=== PATIENT | female | born 1945 | race Caucasian/White ===

== ENCOUNTER 2017-03-27 21:42 | Inpatient (IN) | payer MEDICARE, OTHER ==
[~2017-03-27] VITALS: Ht 157.5 cm; Wt 67.6 kg
--- NOTE | 2017-03-27 21:45 | NUR ---
received via EMS for [facility] for Psych placement, awake, alert, (+) visual hallucinations, states " I have bed bugs all over me", cooperative, denies homicidal or suicidal ideation, pending MD ramos
--- NOTE | 2017-03-27 22:05 | NUR ---
exam by Dr Buenrostro
[2017-03-27 23:01] LABS: BASOPHILS # (AUTO) 0.2 K/uL (0.0-8.0); BASOPHILS % (AUTO) 1.7 % (0.0-2.0); EOSINOPHILS # (AUTO) 0.3 K/uL (0.0-0.7); EOSINOPHILS % (AUTO) 2.9 % (0.0-7.0); HEMATOCRIT 40.2 % (37-47); HEMOGLOBIN 13.6 G/DL (12.0-16.0); LYMPHOCYTES # (AUTO) 3.7 K/UL (0.8-4.8); MEAN CORPUSCULAR HEMOGLOBIN 29.4 UUG (27.0-31.0); MEAN CORPUSCULAR HGB CONC 34 g/dL (32.0-37.0); MEAN CORPUSCULAR VOLUME 87.1 FL (81.0-99.0); MONOCYTES # (AUTO) 0.8 K/UL (0.1-1.30); MONOCYTES % (AUTO) 7.3 % (0.0-11.0); NEUTROPHILS # (AUTO) 5.7 K/UL (1.8-8.9); NEUTROPHILS % (AUTO) 53.1 % (38.5-71.5); PLATELET COUNT (AUTO) 156 K/UL (150-450); RED BLOOD CELL COUNT(AUTO) 4.61 MIL/UL (4.2-5.4); WHITE BLOOD COUNT (AUTO) 10.7 K/UL (4.0-11.2)
[2017-03-27 23:13] LABS: ACETAMINOPHEN 2.2 ug/mL (10-30); ALANINE AMINOTRANSFERASE 39 U/L (14-59); ALKALINE PHOSPHATASE 100 U/L (50-136); ASPARTATE AMINOTRANSFERASE 23 U/L (15-37); BILIRUBIN,DIRECT 0.1 mg/dL (0.0-0.2); BILIRUBIN,TOTAL 0.5 mg/dL (0.2-1.0); CARBON DIOXIDE 25 mmol/L (21-32); CHLORIDE 107 mmol/L (98-107); CREATININE 1.1 mg/dL (0.6-1.3); GLUCOSE 107 mg/dL (74-106); POTASSIUM 3.2 mmol/L (3.5-5.1); TOTAL PROTEIN, SERUM 6.7 g/dL (6.4-8.2); UREA NITROGEN, BLOOD 22 mg/dL (7-18)
[2017-03-27 23:20] LABS: ETHANOL < 3 MG/DL (0-0)
[2017-03-27 23:42] LABS: *BILIRUBIN,URIN NEGATIVE (NEGATIVE); *BLOOD, URINE Trace-intact (NEGATIVE); *CLARITY,URINE CLEAR (CLEAR); *COLOR,URINE YELLOW (YELLOW); *KETONES,URINE NEGATIVE (NEGATIVE); *PROTEIN,URINE NEGATIVE (NEGATIVE); *UROBILINOGEN,URINE 0.2 E.U./dl (NORMAL); LEUKOCYTE ESTERASE ,URINE 1+ (NEGATIVE); NITRITE, URINE NEGATIVE (NEGATIVE); UGLUCOSE TRACE (NEGATIVE)
[2017-03-27 23:50] LABS: THYROID STIMULATING HORMONE 2.594 mIU/mL (0.358-3.740)
[2017-03-27 23:58] LABS: *AMPHETAMINE, URINE NEGATIVE (NEGATIVE); *BARBITURATE, URINE NEGATIVE (NEGATIVE); *CANNABINOID, URINE NEGATIVE (NEGATIVE); *COCCAINE, URINE NEGATIVE (NEGATIVE); *OPIATE, URINE POSITIVE (NEGATIVE); *PHENCYCLIDINE SCREEN,URINE NEGATIVE (NEGATIVE)
[2017-03-27 23:59] LABS: BACTERIA,URINE NONE SEEN /HPF (NONE SEEN); RBC,URINE 0-3 /HPF (0-3); SQUAMOUS EPITHELIAL CELL,UR FEW /HPF (NONE SEEN); YEAST,URINE FEW /HPF (NONE SEEN)
--- NOTE | 2017-03-28 00:30 | NUR ---
medically cleared for psych placement
--- NOTE | 2017-03-28 01:00 | NUR ---
report given to receiving RN MHU
[2017-03-28] MEDS ORDERED: HYDROCODONE/APAP 5-325MG TABLET PO STA (01:04)
[2017-03-28] MEDS ORDERED: HYDROCODONE/APAP 5-325MG TABLET ONE (01:27)
[2017-03-28] MEDS ORDERED: ADVIL (01:42)
[2017-03-28] MEDS ORDERED: HYDR-552 PO (01:42)
[2017-03-28] MEDS ORDERED: DEXL60CA3 PO (01:42)
[2017-03-28] MEDS ORDERED: PRAV40TA PO (01:42)
[2017-03-28] MEDS ORDERED: METF500T4 PO (01:42)
[2017-03-28 02:16] VITALS: BP 149/89
[2017-03-28] MEDS: CLONAZEPAM 0.5 MG TABLET PO PRN (02:50)
[2017-03-28] MEDS ORDERED: CLONAZEPAM 0.5 MG TABLET ONE (02:53)
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
[2017-03-28 07:30] VITALS: BP 142/86
[2017-03-28] MEDS: ESCITALOPRAM OXALATE 10 MG TABLET PO SCH (11:11)
[2017-03-28] MEDS: ARIPIPRAZOLE 5 MG TABLET PO SCH (11:11)
[2017-03-28] MEDS: ACETAMINOPHEN 325 MG TABLET PO PRN (12:00)
[2017-03-28 15:00] VITALS: BP 145/74
[2017-03-28 20:27] VITALS: BP 143/67
[2017-03-28] MEDS: TEMAZEPAM 7.5 MG CAPSULE PO PRN (22:20)
[2017-03-28] MEDS ORDERED: POTASSIUM CHLORIDE 20 MEQ TAB.PRT.SR PO ONE (22:30)
--- NOTE | 2017-03-29 03:22 | NUR ---
PATIENT REQUESTED PRN FOR SLEEP, ADMINISTERED ORDERED WITH EFFECTIVE OUTCOME, CONTINUE TO MONITOR TO ENSURE A SAFE ENVIRONMENT.
[2017-03-29 07:24] LABS: CARBON DIOXIDE 25 mmol/L (21-32); CHLORIDE 105 mmol/L (98-107); CREATININE 0.9 mg/dL (0.6-1.3); GLUCOSE 176 mg/dL (74-106); PHOSPHOROUS 3.7 mg/dL (2.5-4.9); POTASSIUM 3.6 mmol/L (3.5-5.1); UREA NITROGEN, BLOOD 14 mg/dL (7-18)
[2017-03-29 07:30] VITALS: BP 137/58
[2017-03-29 07:30] LABS: BASOPHILS % (AUTO) 0.2 % (0.0-2.0); EOSINOPHILS # (AUTO) 0.1 K/uL (0.0-0.7); HEMATOCRIT 42.1 % (37-47); HEMOGLOBIN 14.5 G/DL (12.0-16.0); LYMPHOCYTES # (AUTO) 1.7 K/UL (0.8-4.8); LYMPHOCYTES % (AUTO) 15.4 % (20.5-51.5); MEAN CORPUSCULAR HEMOGLOBIN 30.1 UUG (27.0-31.0); MEAN CORPUSCULAR HGB CONC 35 g/dL (32.0-37.0); MEAN CORPUSCULAR VOLUME 87.2 FL (81.0-99.0); MONOCYTES # (AUTO) 0.6 K/UL (0.1-1.30); MONOCYTES % (AUTO) 5.7 % (0.0-11.0); NEUTROPHILS # (AUTO) 8.8 K/UL (1.8-8.9); NEUTROPHILS % (AUTO) 77.7 % (38.5-71.5); RED BLOOD CELL COUNT(AUTO) 4.83 MIL/UL (4.2-5.4); WHITE BLOOD COUNT (AUTO) 11.2 K/UL (4.0-11.2)
[2017-03-29 07:31] LABS: PLATELET COUNT (AUTO) 212 K/UL (150-450)
[2017-03-29] MEDS: ARIPIPRAZOLE 5 MG TABLET PO SCH (09:09)
[2017-03-29] MEDS: ESCITALOPRAM OXALATE 10 MG TABLET PO SCH (09:09)
[2017-03-29] MEDS: CLONAZEPAM 0.5 MG TABLET PO PRN (11:25)
[2017-03-29] MEDS: ACETAMINOPHEN 325 MG TABLET PO PRN (11:25)
[2017-03-29 16:46] VITALS: BP 100/56
[2017-03-29] MEDS: MUPIROCIN 2% OINT 22 GM TUBE NS SCH (20:32)
[2017-03-29 20:45] VITALS: BP 152/78
[2017-03-30] MEDS: ACETAMINOPHEN 325 MG TABLET PO PRN ×2 (05:37→15:42)
--- NOTE | 2017-03-30 06:15 | NUR ---
PATIENT SLEPT FOR APPROX 7 HRS THROUGH THE NIGHT. TYLENOL 7650MG PO PRN WAS GIVEN FOR LOWER BACK PAIN 5/10 IN THE PAIN INTENSITY SCALE AT 0537. WAS EFFECTIVE.
[2017-03-30 07:30] VITALS: BP 130/65
[2017-03-30] MEDS: ARIPIPRAZOLE 5 MG TABLET PO SCH (08:21)
[2017-03-30] MEDS: ESCITALOPRAM OXALATE 10 MG TABLET PO SCH (08:21)
[2017-03-30] MEDS: MUPIROCIN 2% OINT 22 GM TUBE NS SCH ×2 (08:21→21:09)
[2017-03-30] MEDS: MAG HYDROX/AL HYDROX/SIMETH 30 ML LIQUID UDC PO PRN (11:47)
[2017-03-30] MEDS: CLONAZEPAM 0.5 MG TABLET PO PRN (15:42)
[2017-03-30 16:35] VITALS: BP 145/60
[2017-03-30 20:51] VITALS: BP 158/79
[2017-03-30] MEDS: TEMAZEPAM 7.5 MG CAPSULE PO PRN (21:09)
--- NOTE | 2017-03-30 22:00 | NUR ---
received to care, lying in bed, pleasant, and cheerful, upon approach. watched tv for a short time, then went back to bed. 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 pt is compliant with isolation procedures, and treatment. denies SI, or desire to harm self. compliant with medications and staff direction. PRN restoril was given at 2108, for insomnia. as of 2199, she appears to be asleep. no distress noted. will continue to monitor closely.
--- NOTE | 2017-03-31 06:00 | NUR ---
slept 8.5 hours, total. continues to sleep. no distress noted.
[2017-03-31] MEDS: MAGNESIUM HYDROXIDE 30 ML LIQUID UDC PO PRN (07:16)
[2017-03-31 07:30] VITALS: BP 140/86
[2017-03-31] MEDS: MUPIROCIN 2% OINT 22 GM TUBE NS SCH ×2 (08:20→20:36)
[2017-03-31] MEDS: ARIPIPRAZOLE 5 MG TABLET PO SCH (08:20)
[2017-03-31] MEDS: ESCITALOPRAM OXALATE 10 MG TABLET PO SCH (08:20)
[2017-03-31] MEDS ORDERED: DEXTROSE 50% 50 ML DISP.SYRIN IV PRN (10:45)
[2017-03-31] MEDS: PANTOPRAZOLE SODIUM 40 MG TABLET.DR PO SCH (11:07)
[2017-03-31] MEDS: BLOOD SUGAR DIAGNOSTIC 1 EACH STRIP VI SCH ×3 (11:15→20:05)
--- NOTE | 2017-03-31 12:14 | NUR ---
Initial Discharge Instructions: Pt is currently homeless. Per pt, she has an apartment in [place], [place] that she would like to return to. Pt is open to SNF placement if needed. Attempted to call pt's niece, Lyn Lin , left VM and awaiting return call. Attempted to contact pt's APS worker, Starr Witt , awaiting return call. SW will speak with pt, family, and MD regarding appropriate discharge plans. SW will form a safe and appropriate discharge.
[2017-03-31] MEDS: MAG HYDROX/AL HYDROX/SIMETH 30 ML LIQUID UDC PO PRN (13:43)
[2017-03-31 17:02] VITALS: BP 160/71
[2017-03-31 20:08] VITALS: BP 137/73
[2017-03-31] MEDS: ATORVASTATIN 10 MG TABLET PO SCH (20:35)
[2017-03-31] MEDS: METFORMIN HCL 500 MG TABLET PO SCH (20:35)
[2017-03-31] MEDS: LATANOPROST OPHT DROP 2.5 ML BOTTLE EACHEYE SCH (20:36)
[2017-03-31] MEDS ORDERED: TRAVOPROST 0.004% OPHT DROP 2.5 ML BOTTLE EACHEYE SCH (21:00)
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
[2017-03-31] MEDS: HYDROCODONE/APAP 5-325MG TABLET PO PRN (22:20)
--- NOTE | 2017-03-31 22:39 | NUR ---
PATIENT REQUESTED PAIN MEDICATION FOR LOWER BACK PAIN 7/10 IN THE PAIN INTENSITY SCALE. NORCO 5/325MG PO PRN FOR MODERATE PAIN WAS GIVEN AT 2220 PER NURSE ASSESSMENT. WILL CONTINUE TO MONITOR
[2017-04-01] MEDS: PANTOPRAZOLE SODIUM 40 MG TABLET.DR PO SCH (06:17)
[2017-04-01] MEDS: BLOOD SUGAR DIAGNOSTIC 1 EACH STRIP VI SCH ×4 (06:43→20:15)
[2017-04-01 07:30] VITALS: BP 115/58
[2017-04-01 07:32] LABS: BASOPHILS # (AUTO) 0.1 K/uL (0.0-8.0); BASOPHILS % (AUTO) 0.7 % (0.0-2.0); EOSINOPHILS # (AUTO) 0.2 K/uL (0.0-0.7); EOSINOPHILS % (AUTO) 2.6 % (0.0-7.0); HEMATOCRIT 42.2 % (37-47); HEMOGLOBIN 14.5 G/DL (12.0-16.0); LYMPHOCYTES # (AUTO) 3.2 K/UL (0.8-4.8); LYMPHOCYTES % (AUTO) 38.9 % (20.5-51.5); MEAN CORPUSCULAR HEMOGLOBIN 30.2 UUG (27.0-31.0); MEAN CORPUSCULAR HGB CONC 34 g/dL (32.0-37.0); MEAN CORPUSCULAR VOLUME 88.1 FL (81.0-99.0); MONOCYTES # (AUTO) 0.8 K/UL (0.1-1.30); MONOCYTES % (AUTO) 10.1 % (0.0-11.0); NEUTROPHILS % (AUTO) 47.7 % (38.5-71.5); PLATELET COUNT (AUTO) 247 K/UL (150-450); RED BLOOD CELL COUNT(AUTO) 4.79 MIL/UL (4.2-5.4); WHITE BLOOD COUNT (AUTO) 8.3 K/UL (4.0-11.2)
[2017-04-01 07:39] LABS: ALANINE AMINOTRANSFERASE 35 U/L (14-59); ALKALINE PHOSPHATASE 94 U/L (50-136); ASPARTATE AMINOTRANSFERASE 23 U/L (15-37); BILIRUBIN,TOTAL 0.6 mg/dL (0.2-1.0); CARBON DIOXIDE 28 mmol/L (21-32); CHLORIDE 105 mmol/L (98-107); CREATININE 1.1 mg/dL (0.6-1.3); GLUCOSE 141 mg/dL (74-106); MAGNESIUM 2.6 mg/dL (1.8-2.4); PHOSPHOROUS 3.4 mg/dL (2.5-4.9); POTASSIUM 4.3 mmol/L (3.5-5.1); UREA NITROGEN, BLOOD 19 mg/dL (7-18)
[2017-04-01] MEDS: ESCITALOPRAM OXALATE 10 MG TABLET PO SCH (08:57)
[2017-04-01] MEDS: ARIPIPRAZOLE 5 MG TABLET PO SCH (08:57)
[2017-04-01] MEDS: MUPIROCIN 2% OINT 22 GM TUBE NS SCH ×2 (08:57→20:14)
[2017-04-01] MEDS: HYDROCODONE/APAP 5-325MG TABLET PO PRN ×2 (09:05→17:09)
[2017-04-01 15:09] VITALS: BP 122/63
[2017-04-01] MEDS: METFORMIN HCL 500 MG TABLET PO SCH (20:13)
[2017-04-01] MEDS: ATORVASTATIN 10 MG TABLET PO SCH (20:13)
[2017-04-01] MEDS: LATANOPROST OPHT DROP 2.5 ML BOTTLE EACHEYE SCH (20:14)
[2017-04-01] MEDS: INSULIN REGULAR, HUMAN 300 UNIT/3 ML VIAL SQ PRN (20:18)
[2017-04-01 20:38] VITALS: BP 111/57
[2017-04-01] MEDS: MAG HYDROX/AL HYDROX/SIMETH 30 ML LIQUID UDC PO PRN (21:38)
[2017-04-02] MEDS: PANTOPRAZOLE SODIUM 40 MG TABLET.DR PO SCH (06:22)
[2017-04-02] MEDS: BLOOD SUGAR DIAGNOSTIC 1 EACH STRIP VI SCH ×4 (06:43→21:04)
[2017-04-02 08:02] VITALS: BP 133/52
[2017-04-02] MEDS: HYDROCODONE/APAP 5-325MG TABLET PO PRN ×2 (08:37→16:19)
[2017-04-02] MEDS: MUPIROCIN 2% OINT 22 GM TUBE NS SCH ×2 (08:39→21:09)
[2017-04-02] MEDS: ARIPIPRAZOLE 5 MG TABLET PO SCH (08:39)
[2017-04-02] MEDS: ESCITALOPRAM OXALATE 10 MG TABLET PO SCH (08:39)
[2017-04-02 16:09] VITALS: BP 142/59
[2017-04-02 20:36] VITALS: BP 134/61
[2017-04-02] MEDS: ATORVASTATIN 10 MG TABLET PO SCH (21:07)
[2017-04-02] MEDS: METFORMIN HCL 500 MG TABLET PO SCH (21:07)
[2017-04-02] MEDS: LATANOPROST OPHT DROP 2.5 ML BOTTLE EACHEYE SCH (21:08)
[2017-04-02] MEDS: TEMAZEPAM 7.5 MG CAPSULE PO PRN (22:36)
[2017-04-03] MEDS: PANTOPRAZOLE SODIUM 40 MG TABLET.DR PO SCH (06:50)
[2017-04-03] MEDS: HYDROCODONE/APAP 5-325MG TABLET PO PRN ×3 (07:02→21:58)
[2017-04-03 07:30] VITALS: BP 135/83
[2017-04-03] MEDS: BLOOD SUGAR DIAGNOSTIC 1 EACH STRIP VI SCH ×4 (07:30→20:23)
[2017-04-03] MEDS: ARIPIPRAZOLE 5 MG TABLET PO SCH (08:37)
[2017-04-03] MEDS: ESCITALOPRAM OXALATE 10 MG TABLET PO SCH (08:38)
--- NOTE | 2017-04-03 09:20 | NUR ---
PT IS PLEASANT ON APPROACH, NO AGITATION, COMPLIANT WITH MEDICATIONS. NO BEHAVIORAL ISSUES. PT TAKES HER MEDICATIONS, COMPLIANT WITH MRSA ISOLATION
[2017-04-03] MEDS: MUPIROCIN 2% OINT 22 GM TUBE NS SCH ×2 (10:19→20:10)
[2017-04-03 15:00] VITALS: BP 133/54
[2017-04-03] MEDS: ACETAMINOPHEN 325 MG TABLET PO PRN (20:10)
[2017-04-03] MEDS: CLONAZEPAM 0.5 MG TABLET PO PRN (20:11)
[2017-04-03] MEDS: ATORVASTATIN 10 MG TABLET PO SCH (20:11)
[2017-04-03] MEDS: LATANOPROST OPHT DROP 2.5 ML BOTTLE EACHEYE SCH (20:11)
[2017-04-03] MEDS: METFORMIN HCL 500 MG TABLET PO SCH (20:11)
[2017-04-03 20:22] VITALS: BP 144/67
[2017-04-03] MEDS: INSULIN REGULAR, HUMAN 300 UNIT/3 ML VIAL SQ PRN (20:25)
--- NOTE | 2017-04-03 23:00 | NUR ---
Pt REPORTED 6/10 GENERALIZED ANXIETY, KLONOPIN 0.25mg ADMINISTERED WITH GOOD EFFECT. Pt C/O 8/10 LOWER BACK PAIN, TYLENOL 650mg ADMINISTERED WITH MINIMAL EFFECT. APPROXIMATELY 90 MINUTES LATER Pt STATED HER PAIN WAS STILL PRESENT, 7/10. NORCO 5/325 ADMINISTERED WITH GOOD EFFECT.
[2017-04-04] MEDS: BLOOD SUGAR DIAGNOSTIC 1 EACH STRIP VI SCH ×4 (06:40→21:20)
[2017-04-04] MEDS: PANTOPRAZOLE SODIUM 40 MG TABLET.DR PO SCH (06:42)
[2017-04-04 07:30] VITALS: BP 132/54
[2017-04-04 07:43] LABS: BASOPHILS # (AUTO) 0.1 K/uL (0.0-8.0); EOSINOPHILS # (AUTO) 0.2 K/uL (0.0-0.7); EOSINOPHILS % (AUTO) 3.1 % (0.0-7.0); HEMATOCRIT 38.9 % (31.2-41.9); HEMOGLOBIN 13.9 g/dL (10.9-14.3); LYMPHOCYTES # (AUTO) 2.4 K/uL (20.0-40.0); LYMPHOCYTES % (AUTO) 36.6 % (20.5-51.5); MEAN CORPUSCULAR HEMOGLOBIN 31.4 uug (24.7-32.8); MEAN CORPUSCULAR HGB CONC 36 g/dL (32.3-35.6); MEAN CORPUSCULAR VOLUME 87.9 fL (75.5-95.3); MONOCYTES # (AUTO) 0.6 K/uL (2.0-10.0); MONOCYTES % (AUTO) 9.8 % (0.0-11.0); NEUTROPHILS # (AUTO) 3.3 K/uL (1.8-8.9); NEUTROPHILS % (AUTO) 49.5 % (38.5-71.5); PLATELET COUNT (AUTO) 207 K/uL (179-408); RED BLOOD CELL COUNT(AUTO) 4.42 MIL/uL (3.63-4.92); WHITE BLOOD COUNT (AUTO) 6.6 K/uL (3.8-11.8)
[2017-04-04 07:56] LABS: ALANINE AMINOTRANSFERASE 31 U/L (14-59); ALKALINE PHOSPHATASE 96 U/L (50-136); ASPARTATE AMINOTRANSFERASE 20 U/L (15-37); BILIRUBIN,TOTAL 0.5 mg/dL (0.2-1.0); CARBON DIOXIDE 28 mmol/L (21-32); CHLORIDE 106 mmol/L (98-107); CREATININE 1.2 mg/dL (0.6-1.3); GLUCOSE 123 mg/dL (74-106); MAGNESIUM 2.3 mg/dL (1.8-2.4); PHOSPHOROUS 4.3 mg/dL (2.5-4.9); UREA NITROGEN, BLOOD 21 mg/dL (7-18)
[2017-04-04] MEDS: ESCITALOPRAM OXALATE 10 MG TABLET PO SCH (09:42)
[2017-04-04] MEDS: HYDROCODONE/APAP 5-325MG TABLET PO PRN ×2 (09:42→21:26)
[2017-04-04] MEDS: ARIPIPRAZOLE 5 MG TABLET PO SCH (09:45)
[2017-04-04] MEDS: MUPIROCIN 2% OINT 22 GM TUBE NS SCH ×2 (09:50→21:18)
--- NOTE | 2017-04-04 11:21 | NUR ---
PT FOUND ON FLOOR IN OUTSIDE PATIO NEXT TO BENCH SEAT . PT APPARENTLY "MISSED MY SEAT" AND SAT ON THE FLOOR ACCIDENTALLY. WITNESSED BY RECREATIONAL THERAPIST WILL WHO WAS SUPERVISING PATIO TIME DURING INCIDENT. PT DENIES PAIN OR DISCOMFORT. STATES "I'M COMPLETELY FINE, I JUST NEED STRONG MEN TO HELP ME GET UP." SECURITY CALLED AND WILL ASSIST PT UP. FULL ROM ON ALL EXTREMITIES. V/S STABLE. Addendum: 04/04/17 at 1143 by ITALO MAYEN RN PLEASE DISREGARD THIS ENTRY. NOTE WAS FOR A DIFFERENT PATIENT.
--- NOTE | 2017-04-04 11:41 | NUR ---
PLEASE DISREGARD PREVIOUS ENTRY. WRONG PATIENT ENTRY.
[2017-04-04] MEDS: HYDROCODONE/APAP 10-325 MG TABLET PO PRN (14:26)
[2017-04-04 15:00] VITALS: BP 121/56
[2017-04-04] MEDS: INSULIN REGULAR, HUMAN 300 UNIT/3 ML VIAL SQ PRN (18:33)
[2017-04-04 21:08] VITALS: BP 123/53
[2017-04-04] MEDS: LATANOPROST OPHT DROP 2.5 ML BOTTLE EACHEYE SCH (21:18)
[2017-04-04] MEDS: METFORMIN HCL 500 MG TABLET PO SCH (21:18)
[2017-04-04] MEDS: ATORVASTATIN 10 MG TABLET PO SCH (21:19)
[2017-04-05] MEDS: BLOOD SUGAR DIAGNOSTIC 1 EACH STRIP VI SCH ×3 (06:21→16:07)
[2017-04-05] MEDS: HYDROCODONE/APAP 10-325 MG TABLET PO PRN ×2 (06:30→16:26)
[2017-04-05 07:30] VITALS: BP 146/57
[2017-04-05] MEDS: PANTOPRAZOLE SODIUM 40 MG TABLET.DR PO SCH (07:33)
[2017-04-05] MEDS: ESCITALOPRAM OXALATE 10 MG TABLET PO SCH (08:14)
[2017-04-05] MEDS: MUPIROCIN 2% OINT 22 GM TUBE NS SCH (08:14)
[2017-04-05] MEDS: ARIPIPRAZOLE 5 MG TABLET PO SCH (08:14)
[2017-04-05 15:29] VITALS: BP 129/52
--- NOTE | 2017-04-05 16:28 | NUR ---
GPS: Nursing Notes: Right Wrist: Patient is awake and responding to her name, c/o fo right wrist pain, applied ice bag, slightly swollen, Dr. Jasmine informed, ordered X-ray of right wrist, PRN [place] given for pain at this time, continue to monitor for safety, continue with treatment plan.
[2017-04-05 20:09] VITALS: BP 124/60
[2017-04-05] MEDS: ATORVASTATIN 10 MG TABLET PO SCH (20:09)
[2017-04-05] MEDS: LATANOPROST OPHT DROP 2.5 ML BOTTLE EACHEYE SCH (20:09)
[2017-04-05] MEDS: METFORMIN HCL 500 MG TABLET PO SCH (20:09)
[2017-04-05] MEDS: HYDROCODONE/APAP 5-325MG TABLET PO PRN (21:52)
[2017-04-05] MEDS: TEMAZEPAM 7.5 MG CAPSULE PO PRN (23:25)
[2017-04-06] MEDS: PANTOPRAZOLE SODIUM 40 MG TABLET.DR PO SCH (06:11)
--- NOTE | 2017-04-06 06:45 | NUR ---
GPS: REMAIN CALM AND COOPERATIVE WITH CARE. CONTINUE ON CONTACT ISOLATION. SLEPT 7 HRS AFTER RESTORIL 7.5 MG PO GIVEN. NO C/O PAIN OR DISCOMFORT THIS TIME.COMPLIANT WITH AM PO MEDICATION. CONTINUE PLAN OF CARE.
[2017-04-06 07:30] VITALS: BP 140/57
[2017-04-06] MEDS: ARIPIPRAZOLE 5 MG TABLET PO SCH (08:24)
[2017-04-06] MEDS: ESCITALOPRAM OXALATE 10 MG TABLET PO SCH (08:24)
[2017-04-06] MEDS: MAGNESIUM HYDROXIDE 30 ML LIQUID UDC PO PRN (08:24)
[2017-04-06] MEDS: HYDROCODONE/APAP 5-325MG TABLET PO PRN ×2 (08:55→18:12)
[2017-04-06 15:32] VITALS: BP 133/59
[2017-04-06 20:00] VITALS: BP 145/56
[2017-04-06] MEDS: ATORVASTATIN 10 MG TABLET PO SCH (20:00)
[2017-04-06] MEDS: METFORMIN HCL 500 MG TABLET PO SCH (20:01)
[2017-04-06] MEDS: LATANOPROST OPHT DROP 2.5 ML BOTTLE EACHEYE SCH (20:04)
[2017-04-06] MEDS: TEMAZEPAM 7.5 MG CAPSULE PO PRN (22:57)
--- NOTE | 2017-04-07 01:39 | NUR ---
AT 0115 Pt YELLED OUT FOR THE NURSE, AT THAT TIME Pt ALLOWED STAFF TO REPOSITION HER. DIAPER WAS CHANGED, SKIN AND WOUND CARE PROVIDED. SOILED MEPILEX REMOVED FROM SACRUM AND (R) LOWER BUTTOCK, AREA CLEANSED WITH SOAP AND WATER, PATTED DRY, HYDROGEL APPLIED, AND NEW MEPILEX PLACED TO BOTH AREAS ORDERED. Pt TOLERATED WELL. BONY PROMINENCES PADDED, BLOOD SUGAR RE-CHECK AT 0130 IS 357, DOWN FROM 424 AND 433. Pt DENIES ANY S/S R/T HYPERGLYCEMIA. WILL CONTINUE TO CLOSELY MONITOR. Addendum: 04/07/17 at 0220 by DEIRDRE LEYVA RN CHARTED ON WRONG Pt, DISREGARD ABOVE NOTE
[2017-04-07] MEDS: HYDROCODONE/APAP 5-325MG TABLET PO PRN ×3 (02:35→21:41)
--- NOTE | 2017-04-07 06:06 | NUR ---
1st POST-BACTROBAN MRSA CULTURE TAKEN FROM (B) NARES COLLECTED AND SENT TO LAB.
[2017-04-07] MEDS: PANTOPRAZOLE SODIUM 40 MG TABLET.DR PO SCH (06:11)
[2017-04-07 07:30] VITALS: BP 111/69
[2017-04-07] MEDS: ARIPIPRAZOLE 5 MG TABLET PO SCH (08:07)
[2017-04-07] MEDS: ESCITALOPRAM OXALATE 10 MG TABLET PO SCH (08:07)
[2017-04-07 16:56] VITALS: BP 135/59
[2017-04-07 20:17] VITALS: BP 117/63
[2017-04-07] MEDS: LATANOPROST OPHT DROP 2.5 ML BOTTLE EACHEYE SCH (20:30)
[2017-04-07] MEDS: ATORVASTATIN 10 MG TABLET PO SCH (20:30)
[2017-04-07] MEDS: METFORMIN HCL 500 MG TABLET PO SCH (20:30)
[2017-04-07] MEDS: MAGNESIUM HYDROXIDE 30 ML LIQUID UDC PO PRN (22:51)
--- NOTE | 2017-04-08 02:29 | NUR ---
PATIENT REMAINS ON ISOLATION DUE TO MRSA NARES, SECOND SPECIMEN WAS SENT OUT TO LAB. AWAITING FOR RESULTS. PATIENT REQUIRES MULTIPLE REDIRECTION TO COVER HER NOSE WHEN AMBULATING IN THE HALLWAY AND DAY ROOM. PATIENT NOTED NEEDY, ATTENTION SEEKER, AND ANXIOUS ABOUT HER INCOMING DISCHARGED. NORCO 5/325MG PO PRN FOR LOWER BACK PAIN WAS GIVEN. SHE ALSO STATED HAVING "TROUBLE WITH BM". MOM 30ML PO PRN WAS GIVEN FOR CONSTIPATION. WILL CONTINUE TO MONITOR.
[2017-04-08] MEDS: PANTOPRAZOLE SODIUM 40 MG TABLET.DR PO SCH (07:06)
[2017-04-08 08:05] VITALS: BP 137/59
[2017-04-08] MEDS: ARIPIPRAZOLE 5 MG TABLET PO SCH (10:00)
[2017-04-08] MEDS: ESCITALOPRAM OXALATE 10 MG TABLET PO SCH (10:01)
[2017-04-08] MEDS: HYDROCODONE/APAP 5-325MG TABLET PO PRN (10:08)
--- NOTE | 2017-04-08 10:23 | NUR ---
DC Note: Patient will be discharged to [facility] [[place], [place] [id number]; ] via ambulance at 1:00pm. Spoke with PJ at [facility] who stated patient has been accepted to that facility. Spoke with patient's niece/DPOA, Lyn who is aware and agreeable with discharge plans. Patient is aware and agreeable with discharge plans. Patient will follow-up at the facility with Dr. Hyatt (Business Integration Manager) and Dr. Perez (Psychiatrist). Patient was provided with a brief substance abuse intervention and referred to [facility] [ ], [facility] [ ], and [facility] [ .]
--- NOTE | 2017-04-08 14:00 | NUR ---
Patient is for discharged to [facility] in [place], discharged instructions reviewed with patient , educate the importance of medication compliance and follow up check up, education materials given regarding medication and disease process. Belongings and valuable returned to patient. Patient condition stable, v/s wnl, denies suicidal/homicidal ideations. Report called to BETHANY Brooks at [facility]. Report given to ambulance staff. Patient left the unit via gurney at around 1400.
== END 2017-04-08 13:00 | DRG 885 ==
LOC: ER 21:43 → GPS 03-28 00:46
PROVIDERS: ADMIT Psychiatry & Neurology Psychiatry; ATTEND Internal Medicine
DX: F33.3 Major depressive disorder, recurrent, severe with psychotic symptoms (principal); N17.0 Acute kidney failure with tubular necrosis; F23 Brief psychotic disorder; E78.5 Hyperlipidemia, unspecified; E83.41 Hypermagnesemia; E87.6 Hypokalemia; F17.210 Nicotine dependence, cigarettes, uncomplicated; G89.4 Chronic pain syndrome; I10 Essential (primary) hypertension; J44.9 Chronic obstructive pulmonary disease, unspecified; Z22.322 Carrier or suspected carrier of Methicillin resistant Staphylococcus aureus; E11.69 Type 2 diabetes mellitus with other specified complication; H40.9 Unspecified glaucoma; M25.531 Pain in right wrist; Z79.84 Long term (current) use of oral hypoglycemic drugs
CPT/HCPCS: 36415; 70030-TC; 70450; 71010; 73110; 80307; 83735; 84100; 84443; 85025; 85730; 87086; 93005; A4663; G0480; G0480-TC; J1815